=== PATIENT | male | born 1955 | race Caucasian/White ===

== ENCOUNTER 2025-04-11 12:00 | Day surgery (SDC) | payer MEDICARE, SELFPAY ==
--- NOTE | 2025-04-10 07:22 | EKG_ITS ---
[facility] Test Date: 2025-04-10 Pat Name: FELTON ROLLINS Department: Room: - Gender: Male Paradi Tender: EVAN : 1955 Requested By: Nicola Lewis Order Number: [id number] Reading MD: Nicola Lewis Measurements Intervals [place] Rate: 75 P: -86 [place]: 136 QRS: 30 QRSD: 121 T: 42 QT: 380 QTc: 427 Interpretive Statements JUNCTIONAL RHYTHM MODERATE INTRAVENTRICULAR CONDUCTION DELAY [110+ ms QRS DURATION] ABNORMAL RHYTHM ECG No previous ECG available for comparison /[email or web address]/[id number]/[id number]
[2025-04-10 12:00] LABS: Basophils % (Auto) 0 % (0-2.5); Eosinophils # (Auto) 0.4 Thou/mm3 (0.0-0.5); Eosinophils % (Auto) 4 % (0-10); Hematocrit 42.9 % (41.0-53.0); Hemoglobin 14.7 g/dL (13.5-16.0); Immature Granulocytes % (Auto) 0 % (0-0); Immature Granulocytes Auto 0.01 Thou/mm3 (0.00-0.00); Lymphocytes # (Auto) 3.1 Thou/mm3 (1.0-4.8); Lymphocytes % (Auto) 35 % (10-50); Mean Corpuscular HGB Conc 34.3 g/dl (31.0-37.0); Mean Corpuscular Volume 93 fL (80-100); Monocytes # (Auto) 0.6 Thou/mm3 (0.0-0.8); Monocytes % (Auto) 7 % (0-12); Neutrophils # (Auto) 4.9 Thou/mm3 (1.8-7.7); Neutrophils % (Auto) 54 % (37-80); Nucleated Red Blood Cell % 0 /100 WBC (0); Platelet Count 212 Thou/mm3 (140-440); RDW Standard Deviation 45.4 fL (35.1-43.9)
[2025-04-10 12:08] LABS: INR 1.1 (0.9-1.3); Partial Thromboplastin Time 26.7 Seconds (22.0-36.0); Prothrombin Time 11.9 Seconds (9.0-12.2)
[2025-04-10 12:13] LABS: Alanine Aminotransferase 17 U/L (10-49); Albumin, Serum 4.1 gm/dL (3.4-4.8); Albumin/Globulin Ratio 1.9 (1.2-2.2); Alkaline Phosphatase 75 U/L (46-116); Anion Gap 5 (7-16); Aspartate Amino Transferase 24 U/L (0-34); BUN/Creatinine Ratio 13 Ratio (12-20); Bilirubin,Total 0.6 mg/dL (0.3-1.2); Blood Urea Nitrogen 13 mg/dL (9-23); Calcium 8.9 mg/dL (8.3-10.6); Calcium (Corrected) 8.9 mg/dL (8.5-10.1); Carbon Dioxide 29.8 mMol/L (20.0-31.0); Chloride 104 mMol/L (98-107); Globulin 2.2 gm/dL (2.3-3.5); Glucose 101 mg/dL (74-106); Osmolality,Calculated 277 (275-295); Potassium 4.8 mMol/L (3.4-5.1); Sodium 139 mMol/L (136-145); Total Protein 6.3 gm/dL (5.7-8.2); eGFR > 60 See Note
[2025-04-11 12:54] VITALS: BP 118/75; PULSE 65; RESP 18; TEMP 36.7; O2SAT 94; BMI 20.7
[2025-04-11 15:10] VITALS: BP 132/62; PULSE 83; RESP 23; O2SAT 98
[2025-04-11] MEDS: RINGERS LACTATED 1000 ML 1,000 ML 100 ML IV (15:10)
[2025-04-11 15:40] VITALS: BP 127/79; PULSE 63; RESP 22; TEMP 36.2; O2SAT 96
[2025-04-11 15:50] VITALS: BP 138/84; PULSE 62; RESP 16; O2SAT 96
[2025-04-11 16:00] VITALS: BP 140/85; PULSE 68; RESP 16; O2SAT 96
[2025-04-11 16:10] VITALS: BP 124/93; PULSE 64; RESP 15; O2SAT 98
== END 2025-04-11 16:24 | disposition home or self-care (01) ==
PROVIDERS: Anesthesiology; PCP Physician Assistant; Referring Provider Surgery; Visit Provider Surgery
PROC: 0DBE8ZX Excision of Large Intestine, Via Natural or Artificial Opening Endoscopic, Diagnostic (ICD-10-PCS; CPT 45380; principal; 2025-04-11 14:30)
DX: Z12.11 Encounter for screening for malignant neoplasm of colon (principal); Z01.810 Encounter for preprocedural cardiovascular examination; K57.90 Diverticulosis of intestine, part unspecified, without perforation or abscess without bleeding
CPT/HCPCS: G0121; 36415; 80053; 85025; 85610; 85730; 93005; J7120